=== PATIENT | male | born 1995 | race Caucasian/White ===

== ENCOUNTER 2016-09-18 20:12 | Emergency (ER) | payer OTHER ==
[~2016-09-18] VITALS: Ht 208.3 cm; Wt 158.7 kg
[~2016-09-18 20:12] MED LIST: CELEXA20 MG PO
== END 2016-09-18 21:03 | disposition short-term general hospital (02) ==
LOC: ER 20:12
DX: R51 Headache (principal); I10 Essential (primary) hypertension; V49.9XXA Car occupant (driver) (passenger) injured in unspecified traffic accident, initial encounter